=== PATIENT | female | born 2000 | race Hispanic/Latino ===

== ENCOUNTER 2024-02-08 15:39 | Emergency (ER) | payer OTHER, SELFPAY ==
[2024-02-08 15:42] VITALS: BP 138/84
--- NOTE | 2024-02-08 16:28 | ED.GENMED ---
History of Present Illness
General
Chief Complaint: Breast Problem
Time Seen by Provider: 02/08/24 16:13
History of Present Illness
History of Present Illness:
Patient is a 24-year-old girl who is otherwise healthy presenting to the emergency department with a rash to her breast. Patient states about 6 weeks ago she noticed that her left breast was more swollen and she noticed an area of bruising near the
nipple. She states that that has been persisting and the bruising does decrease and then increases again. She denies any trauma. She notes that occasionally she will have some lymph nodes in her axillary region that come and go. It is not
related to her menses. No family history of malignancy. She was researching and was concerned that she might have some sort of cancer. She has not seen PEDIATRIC AUDIOLOGIST. She has never been . She is getting her period regularly. She also noticed
a rash behind her ear and underneath both her breast that correlated with the symptoms. She does state the rash is itchy. It does flake.
Phy Exam
Physical Exam
Physical Exam:
GENERAL: in no acute distress
HEENT: normocephalic, extraocular movements intact, moist oral mucosa
NECK: normal inspection
Breast: Chaperoned by EDELMIRA Ambriz: Left breast is more swollen compared to the right breast with small area of ecchymoses just lateral to the nipple. Scaly erythematous macular papular rash underneath breast folds. Same rash behind the left ear with
movement more prominent central clearing
RESPIRATORY: no respiratory distress, clear to auscultation bilaterally
CARDIOVASCULAR: regular rate and rhythm
ABDOMEN/: soft, non-distended, non-tender to palpation, no rebound or guarding
EXTREMITIES: non-tender, no edema/swelling
NEUROLOGIC: awake and alert, moves all extremities
SKIN: warm
Course
Orders/Labs/Results
Orders:
Orders
02/08/24 16:23
US Breast Left Ltd Urgent
Comment:
Reason For Exam: swelling, tenderness
02/08/24 16:43
Lyme Progressive Urgent
02/08/24 17:38
US Breast Left Ltd Urgent
Comment:
Reason For Exam: swelling, tenderness, r/o abscess
Vital Signs
Initial and Last Documented VS:
Initial Vital Signs
Temp Pulse Resp BP Pulse Ox
98.7 F 82 16 138/84 100
02/08/24 15:42 02/08/24 15:42 02/08/24 15:42 02/08/24 15:42 02/08/24 15:42
Last Documented Vital Signs
Temp Pulse Resp BP Pulse Ox
98.7 F 82 16 138/84 100
02/08/24 15:42 02/08/24 15:42 02/08/24 15:42 02/08/24 15:42 02/08/24 15:42
MDM/Problems Addressed
Differential Diagnosis Includes:
Patient is a 24-year-old woman presenting to the emergency department 6 weeks of breast swelling tenderness and a rash. Vitals unremarkable and exam does show a swollen left breast with some mild bruising laterally to the nipple. Rash is
consistent with a tinea infection. Patient does state that she occasionally works out. However given the central clearing behind the left ear we will test for Lyme. Will obtain an ultrasound to further evaluate. Patient informed that ultimately
she will need gynecology follow-up as that is where mammogram will be done if needed. Will start patient on antifungal for the rash. Patient signed out to oncoming attending pending ultrasound results.
*Critical Care Note
Total Time (30-74mins, 75-104mins- exclusive of procedures): Not Applicable
ED Attending Note
-
Portions of this chart may have been created with voice recognition software.� Occasional wrong word or��sound alike� substitutions may have occurred due to the inherent limitations of voice recognition software.
Discharge Plan
Departure
Discharge Problem:
Tinea corporis
Instructions: Fungal Skin Rash ED
Prescriptions:
New
clotrimazole 1 % cream
1 applic topical BID 28 Days Qty: 30 0RF
Rx Instructions:
Apply to the rash behind the ear and under breast
Activity Restrictions/Additional Instructions:
transmit rx
Discharge Date and Time
Print Language: ESTONIAN
--- NOTE | 2024-02-08 19:57 | ED.GENMED ---
History of Present Illness
General
Chief Complaint: Breast Problem
Time Seen by Provider: 02/08/24 16:13
Course
Orders/Labs/Results
Orders:
Orders
02/08/24 16:43
Lyme Progressive Urgent
02/08/24 17:38
US Breast Left Ltd Urgent
Comment:
Reason For Exam: swelling, tenderness, r/o abscess
Vital Signs
Initial and Last Documented VS:
Initial Vital Signs
Temp Pulse Resp BP Pulse Ox
98.7 F 82 16 138/84 100
02/08/24 15:42 02/08/24 15:42 02/08/24 15:42 02/08/24 15:42 02/08/24 15:42
Last Documented Vital Signs
Temp Pulse Resp BP Pulse Ox
98.7 F 82 16 138/84 100
02/08/24 15:42 02/08/24 15:42 02/08/24 15:42 02/08/24 15:42 02/08/24 15:42
*Radiology
Radiology exam reviewed: radiology read reviewed (Ultrasound the breast shows no abscess but mild swelling.)
ED Attending Note
-
Portions of this chart may have been created with voice recognition software.� Occasional wrong word or��sound alike� substitutions may have occurred due to the inherent limitations of voice recognition software.
Discharge Plan
Departure
Patient Disposition: Home (Routine Discharge)
Date of Disposition: 02/08/24
Time of Disposition: 19:57
Patient with high blood pressure during this ER visit?: No
Condition: Good
Discharge Problem:
Tinea corporis, Breast swelling
Instructions: Fungal Skin Rash ED
Prescriptions:
New
clotrimazole 1 % cream
1 applic topical BID 28 Days Qty: 30 0RF
Rx Instructions:
Apply to the rash behind the ear and under breast
Referrals:
iJmena Pedroza MD [Active] - Call in 1-3 days for appt
Activity Restrictions/Additional Instructions:
transmit rx
Interventions
Interventions:
*Risk Screen - Suicide Last Done: 02/08/24 19:51
*Neglect/Abuse Screening Last Done: 02/08/24 19:51
ED- Fall Risk Assessment Last Done: 02/08/24 19:52
*ED COVID-19 Vaccine History Last Done: 02/08/24 19:51
ED-Skin Assessment Last Done: 02/08/24 19:52
Discharge Date and Time
Print Language: GREENLANDIC
[2024-02-08 20:06] VITALS: BP 122/73
[2024-02-09 16:21] LABS: Lyme Antibody Screen, EIA Negative (Negative)
== END 2024-02-08 20:08 | disposition home or self-care (01) ==
LOC: EMR 15:39
PROVIDERS: EMERGENCY PHYSICIAN Student in an Organized Health Care Education/Training Program; FAMILY PHYSICIAN Student in an Organized Health Care Education/Training Program
DX: B35.4 Tinea corporis (principal); N63.20 Unspecified lump in the left breast, unspecified quadrant
CPT/HCPCS: 99284; 76642; 86618